=== PATIENT | male | born 1970 | race Caucasian/White ===

== ENCOUNTER 2019-04-10 11:33 | Emergency (ER) | payer OTHER ==
[~2019-04-10] VITALS: Ht 193 cm; Wt 136.1 kg
[2019-04-10] MEDS ORDERED: PRILOSEC OTC20 MG PO (11:52)
[2019-04-10] MEDS ORDERED: LISINOPRIL-HCT1 EACH PO (11:53)
[2019-04-10] MEDS ORDERED: MOBIC7.5 MG PO (12:57)
[2019-04-10] MEDS ORDERED: CYCLOBENZAPRINE10 MG PO (12:57)
== END 2019-04-10 14:34 | disposition home or self-care (01) ==
LOC: ED 11:33
DX: S70.12XA Contusion of left thigh, initial encounter (principal); M25.552 Pain in left hip; M25.512 Pain in left shoulder; Z88.1 Allergy status to other antibiotic agents; Z79.899 Other long term (current) drug therapy; W18.30XA Fall on same level, unspecified, initial encounter
CPT/HCPCS: 73030; 73502; 99283-25

== ENCOUNTER 2022-03-05 05:45 | Day surgery (SDC) | payer OTHER ==
[~2022-03-05] VITALS: Ht 193 cm; Wt 136.4 kg
[~2022-03-05 05:45] MED LIST: ATENOLOL50 MG PO; COD LIVER OIL1 EAC2 PO; CYCLOBENZAPRINE10 MG PO; LIPITOR10 MG PO; LISINOPRIL-HCT1 EACH PO; MOBIC7.5 MG PO; MULTI-DAY PLUS1 EACH PO; PRILOSEC OTC20 MG PO; TRAZODONE HCL100 MG PO
--- NOTE | 2022-03-05 07:24 | NUR ---
[facility]IDA D/C'D PER DR. LEVIN.
--- NOTE | 2022-03-05 08:09 | NUR ---
03/05/22 0809 Yoel,Brenda 0801 PT ARRIVED TO PACU ON 10L VIA MASK WITH ORAL AIRWAY IN PLACE. VSS. PT ASLEEP AND RESP EVEN AND UNLABORED. 0804 PT WAKES AND ORAL AIRWAY REMOVED 08 O2 REMOVED, PT DENIES PAIN AND NAUSEA AND IS REORIENTED TO PACU. PLAN OF CARE DISCUSSED.
--- NOTE | 2022-03-05 10:20 | OR ---
[facility] [address], [place] [address] Signed DATE OF OPERATION: 03/05/2022 SURGEON: Pablo Levin MD PREOPERATIVE DIAGNOSIS: Screening. POSTOPERATIVE DIAGNOSIS: Minimal right and left-sided diverticulosis. PROCEDURE: Colonoscopy without biopsy. ESTIMATED BLOOD LOSS: None. INDICATIONS: Colleen is a 51-year-old gentleman, who has been working with our [employer] for his upcoming gastric bypass surgery. He has been asked to see me for a screening colonoscopy in that regard. The COVID pandemic has delayed the surgery. He actually has lost about 70 pounds on his own. He has no lower GI complaints. There is no family history of colon cancer or polyps. He is also a very large man with very heavy chest and abdomen. He also has to use Percocet several times a week for his knees. He is also using Flexeril and trazodone. He is also diabetic. In that regard, we asked that he have monitored anesthesia care with propofol infusion. That worked out very well. In the office, I gave Colleen a pamphlet on colonoscopy. He understands the nature of the test. There is risk including, but not limited to gas bloating, crampy abdominal pain, bleeding, perforation requiring surgery, and missed diagnosis. He had expressed understanding and wished to proceed. PROCEDURE NOTE: Colleen was taken into our endoscopy suite and placed in the left lateral decubitus position. He was given monitored anesthesia care with propofol per our nurse braille operator. A digital rectal exam was performed and this was unremarkable. He has good sphincter tone and no external hemorrhoids. There were no masses. He is a very large man and I really could not reach more than the bottom of his prostate gland. It is a little indurated, but otherwise unremarkable. The adult colonoscope had been introduced and advanced quite readily up into the cecum itself without difficulty. His prep was quite excellent. We could easily see the appendiceal orifice and ileocecal valve. He did have several diverticula in the cecum. The scope was then slowly Electronically Signed By: PABLO LEVIN MD 03/05/22 1020 PATIENT NAME: COLLEEN HARDY OPERATIVE REPORT DATE OF : 72 REPORT #: [id number] PHYSICIAN: PABLO LEVIN MD PCP: GENO CONTRERAS PA-C REPORT IS CONFIDENTIAL AND NOT TO BE RELEASED WITHOUT AUTHORIZATION [facility] [address], [place] [address] Signed withdrawn. We took pictures throughout for photodocumentation. He also has several diverticula in the sigmoid colon. Again, there were moderate in size, few in number, and scattered about. The rectum was unremarkable. Upon retroflexion of scope, there was no additional pathology noted above the anal canal. After this, the gas was suctioned out. The colonoscope removed. Colleen tolerated the procedure quite well. RECOMMENDATIONS: Colleen can return in 10 years for repeat colonoscopy. Pablo Levin MD ALB/MODL /[id number] cc: Pablo Levin MD [facility] Geno Contreras PA-C Copies: PABLO LEVIN MD, CHLOE K PA-C ~ Electronically Signed By: PABLO LEVIN MD 03/05/22 1020 PATIENT NAME: COLLEEN HARDY OPERATIVE REPORT DATE OF : 72 REPORT #: [id number] PHYSICIAN: PABLO LEVIN MD PCP: GENO CONTRERAS PA-C REPORT IS CONFIDENTIAL AND NOT TO BE RELEASED WITHOUT AUTHORIZATION
== END 2022-03-05 08:28 | disposition home or self-care (01) ==
LOC: DS 05:45 → OPS 05:45 → DS 07:30 → OPS 08:28
PROVIDERS: ATTEND Colon & Rectal Surgery
PROC: 0DJD8ZZ Inspection of Lower Intestinal Tract, Via Natural or Artificial Opening Endoscopic (ICD-10-PCS; principal; 2022-03-05 07:30)
DX: Z12.11 Encounter for screening for malignant neoplasm of colon (principal); K57.30 Diverticulosis of large intestine without perforation or abscess without bleeding; E11.9 Type 2 diabetes mellitus without complications; I10 Essential (primary) hypertension; E78.5 Hyperlipidemia, unspecified; E66.9 Obesity, unspecified; Z88.1 Allergy status to other antibiotic agents; Z68.41 Body mass index [BMI] 40.0-44.9, adult
CPT/HCPCS: J2704; J7121